=== PATIENT | male | born 1960 | race Caucasian/White ===

== ENCOUNTER 2020-05-28 07:45 | Outpatient (CLI) | payer OTHER, SELFPAY ==
--- NOTE | ~2020-05-28 | CT_ITS ---
EXAMINATION: CT abdomen pelvis w con EXAM DATE: 05/28/2020 08:28 INDICATION: Periumbilical, epigastric pain. TECHNIQUE: Spiral CT of the abdomen and pelvis was performed without contrast. Axial, coronal and s agittal images were reviewed. The dose-length product (DLP) for this examination was 190.53 mGy-cm. The exposure was tailored according to patient size (auto mA exposure control), and iterative recons truction (ASIR) was used as additional dose reduction technique. There is no prior study for compari son. FINDINGS: The liver, spleen, adrenal glands and pancreas are unremarkable. Gallbladder is unremarkab le. No biliary obstruction. Portal and splenic veins are patent. Kidneys enhance symmetrically. T here is no hydronephrosis. The prostate is unremarkable. There is a left renal cyst measuring 3 cm. There is bladder is undistended with wall trabeculation, and mild diffuse thickening without focal p olypoid urothelial lesion suspected. There is no retroperitoneal or pelvic lymphadenopathy. There is mild scattered arteriosclerotic disease. No abdominal wall hernias. The appendix is normal. There is mild to moderate sigmoid colonic diverticulosis. There is no adjace nt inflammatory change to suggest diverticulitis. The stomach and small bowel are unremarkable. Ther e is expected amount of colonic stool. No free intraperitoneal gas. The heart is normal in size. There are no pericardial or pleural effusions. The lung bases are unremarkable. There are no osteo blastic or osteolytic lesions identified. IMPRESSION: 1. No acute intra-abdominal findings. 2. Mild to moderate colonic diverticulosis. 3. Diffuse lateral wall thickening, partly under distention but chronic cystitis also possible. Reviewed, dictated and finalized at location B. IMPRESSION: 1. No acute intra-abdominal findings. 2. Mild to moderate colonic diverticulosis. 3. Diffuse lateral wall thickening, partly under distention but chronic cystit is also possible.
--- NOTE | ~2020-05-28 | XR_ITS ---
EXAMINATION: XR UGIAC w kub DATE: 05/28/2020 08:57 INDICATION: Epigastric and periumbilical abdominal pain. TECHNIQUE: The patient drank thick barium, gas-producing crystals, and thin barium. A quality assurance technician AP radiog raph of the abdomen and pelvis was obtained. A total of 488 fluoroscopic images of the esophagus, sto mach, and proximal small bowel were obtained. Fluoroscopy exposure time was 1.6 minutes. COMPARISON: None. FINDINGS: The quality assurance technician radiograph demonstrates excreted contrast in the bilateral renal collecting systems, proxim al ureters and in the bladder. There is mild caliectasis at the left kidney without patrick hydronephro sis. The esophagus is normal without mass or stricture. Esophageal motility is normal. There is no hi atal hernia. A single episode of gastroesophageal reflux was observed with a moderate amount of contr ast extending to at least the midesophagus with Valsalva. The stomach and proximal small bowel are no rmal. IMPRESSION: 1. Single episode of gastroesophageal reflux with provocative maneuvers. Otherwise unremarkable upper GI study. 2. Mild caliectasis at the left kidney without patrick hydronephrosis. Reviewed, dictated and finalized at location A. IMPRESSION: 1. Single episode of gastroesophageal reflux with provocative maneuvers. Otherw ise unremarkable upper GI study. 2. Mild caliectasis at the left kidney without patrick hydronephrosis.
[2020-05-28 08:22] LABS: Basophils Absolute Auto 0.1 K/mm3 (0.0-0.1); Basophils Percent Auto 1.1 % (0.2-1.2); Eosinophils Absolute Auto 0.1 K/mm3 (0-0.3); Eosinophils Percent Auto 1.8 % (0-4.4); Hemoglobin 16.9 g/dL (14.0-18.0); Immature Granulocyte Absolute 0.01 K/mm3 (0.00-0.031); Immature Granulocyte Percent A 0.2 % (0-0.5); Lymphocytes Absolute Auto 1.29 K/mm3 (0.9-3.2); Lymphocytes Percent Auto 21.1 % (18.3-44.2); Mean Corpuscular HGB Conc 33.8 g/dl (32-36); Mean Corpuscular Volume 91.6 fl (80-100); Mean Platelet Volume 10.3 fl (7.4-10.4); Monocytes Absolute Auto 0.5 K/mm3 (0.1-0.6); Monocytes Percent Auto 8.5 % (2.6-8.5); Neutrophils Absolute Auto 4.1 K/mm3 (1.3-6.7); Neutrophils Percent Auto 67.3 % (45.5-73.1); Platelet Count Result 265 k/mm3 (150-375); Red Blood Count 5.46 M/mm3 (4.6-6.20); Red Cell Distribution Width 12.8 % (11.5-14.5); White Blood Count 6.1 K/mm3 (4.5-10.0)
[2020-05-28 08:25] LABS: Add Urine Microscopic? YES; Appearance Urine Clear (Clear); Bilirubin Urine Negative (Negative); Blood Urine Negative (Negative); Color Urine Yellow (Yellow); Glucose Urine UA Negative (Negative); Ketones Urine Negative (Negative); Leukocyte Esterase Ur Negative LEU/UL (NEGATIVE); Mucus Urine Rare /lpf; Nitrate Urine Negative (Negative); Protein Urine 1+ mg/dL (Negative); RBC Urine 0-2 /hpf (0-2); Specific Grav Ur 1.018 (1.001-1.035); Urobilinogen Urine Negative mg/dL (<2.0); WBC Urine 0-3 /hpf (0-3)
[2020-05-28 08:36] LABS: Alanine Aminotransferase 16 U/L (4-50); Albumin Level 3.7 g/dL (3.5-5.1); Alkaline Phosphatase 57 U/L (38-126); Amylase 95 U/L (30-110); Aspartate Amino Transferase 31 U/L (17-59); Bilirubin,Total 0.7 mg/dL (0.2-1.3); Blood Urea Nitrogen 15 mg/dL (9-20); Calcium 9.1 mg/dL (8.4-10.2); Carbon Dioxide 30 mmol/L (22-30); Chloride 105 mmol/L (98-107); Cholesterol 250 mg/dL (0-200); Estimated Glomerular Filt Rate > 60; Glucose 106 mg/dL (75-110); HDL Direct 70 mg/dL; Lipase 96 U/L (23-300); Potassium 5.3 mmol/L (3.4-5.0); Sodium 137 mmol/L (137-145); Triglycerides 176 mg/dL (<150)
[2020-05-28 08:48] LABS: LDL Cholesterol Direct 127 mg/dL
[2020-05-28 09:08] LABS: Prostate Specific Antigen 1.3 ng/mL (< OR = 4.0); Thyroid Stimulating Hormone 0.806 uIU/mL (0.465-4.680)
[2020-05-28 09:09] LABS: Free T4 Free Thyroxine 0.97 ng/mL (0.78-2.19)
[2020-05-28 09:13] LABS: Hemoglobin A1C 5.3 % (<5.7)
[2020-05-28 09:43] LABS: Folic Acid 8.5 ng/mL (2.76->20)
== END 2020-05-28 07:46 | disposition home or self-care (01) ==
LOC: ANHIMG 07:49
PROVIDERS: PCP Physician Assistant; Visit Provider Physician Assistant
DX: R10.13 Epigastric pain (principal); R10.9 Unspecified abdominal pain; Z12.5 Encounter for screening for malignant neoplasm of prostate; Z13.29 Encounter for screening for other suspected endocrine disorder; Z13.220 Encounter for screening for lipoid disorders
CPT/HCPCS: 36415; 74177; 74246; 80053; 80061; 81001; 82150; 82607; 82746; 83036; 83690; 84153; 84439; 84443; 85025; G0103; Q9967

== ENCOUNTER 2020-11-06 02:20 | Outpatient (CLI) | payer OTHER, SELFPAY ==
[2020-11-06 18:46] LABS: SARS-CoV-2 RNA PCR Negative
== END 2020-11-06 02:21 | disposition home or self-care (01) ==
LOC: ANHCOVIDDT 02:20
PROVIDERS: PCP Physician Assistant; Visit Provider Internal Medicine Gastroenterology
DX: Z01.812 Encounter for preprocedural laboratory examination (principal); Z11.59 Encounter for screening for other viral diseases
CPT/HCPCS: 87635; C9803; U0003

== ENCOUNTER 2020-11-09 00:56 | Day surgery (SDC) | payer OTHER, SELFPAY ==
[2020-11-02 13:07] VITALS: BMI 19.1
[2020-11-09 12:44] VITALS: BP 142/77; PULSE 64; RESP 18; TEMP 36.1; O2SAT 100
--- NOTE | 2020-11-09 12:45 | WPDANESEPPF ---
Anes - Initial Pre Proc Eval Procedure: Operation Date: 11/09/20 14:00 Proposed Procedures p Esophagogastroduodenoscopy - Maximo Barrera DO Date/Time: 11/09/20 12:45 Surgeon: Maximo Barrera DO Pre Op Diagnosis: GERD Patient Data Age: 59 Gender: M Height: 5 ft 8 in Weight: 55.1 kg Last Vital Signs Temp 36.1 C L 11/09/20 12:44 Pulse 64 11/09/20 12:44 Resp 18 11/09/20 12:44 BP 142/77 H 11/09/20 12:44 Pulse Ox 100 11/09/20 12:44 Allergies Allergy/AdvReac Type Severity Reaction Status Date / Time No Known Allergies Allergy Unknown Verified 11/09/20 12:43 Home Medications Medication Instructions Recorded Confirmed Type zolpidem 5 mg PO HS 11/02/20 11/09/20 History Patient hx anesthesia problems: none Family hx anesthesia problems: none [facility] Past Medical History Medical History (Updated 11/09/20 @ 12:46 by Ramsey Fletcher MD) Depression GERD (gastroesophageal reflux disease) Surgical History Surgical History (Updated 11/09/20 @ 12:46 by Ramsey Fletcher MD) H/O colonoscopy Family History Family History (Updated 04/29/19 @ 11:01 by DOCTOR UNKNOWN) Mother Family history of glaucoma Family history of coronary artery disease Acute myocardial infarction Father Family history of heart disease in male family member before age 55 Family history of coronary artery disease Other Hypertension Social History Social History Smoking status: Never smoker Alcohol intake: current Drinks per week: 14 Alcohol use details: BEERS Substance use: never Substance use type: does not use Living arrangements: with family Spiritual care concerns: No Anes - Eval Final PreProcedure Day of Procedure 11/09/20 12:45 Patient weight: thin Heart: regular rate and rhythm Lungs: clear to auscultation Airway: Mallampati scale class 1 Neurological: alert and oriented Last oral intake: >/= 8 hours ASA classification: II Emergent: no Anesthetic plan: proceed Anesthesia type and monitoring: general GIVS and standard monitoring Informed Consent: The patient's anesthetic plan and its attendant risks and benefits were discussed with the patient/family/POA. Questions were solicited and answers provided to the satisfaction of the patient/family/POA.
[2020-11-09] MEDS: LACTATED RINGERS 1,000 ML 150 ML IV CONT (12:54)
--- NOTE | 2020-11-09 13:25 | PM.IMHP ---
H&P: HPI History of Present Illness Date/Time: 11/09/20 13:25 Chief complaint: GERD Narrative: Reason for visit is EGD. This very pleasant gentleman seen in consultation at the request of the primary physician. Impression: Here we have a gentleman with complaints of a lump in his throat upper abdominal pain. Will evaluate for underlying peptic ulcer disease. The lump in throat may be secondary to globus reaction. HLD. Anxiety. 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 Recommendation: EGD. History: Very pleasant gentleman is here complaining of 6 months of a sense of choking / lump in the throat. This usually occurs after eating. Denies any nausea, vomiting, dysphagia or odynophagia. He also has been having subxiphoid/epigastric abdominal pain. The pain is unaffected by eating or defecation. He does admit to be taking NSAIDs on occasion. Patient is here for endoscopic evaluation to assess for lying peptic ulcer disease. Previous CT imaging was unrewarding with respect to the abdominal pain. Physical examination: General: very pleasant patient in no acute distress. HEENT: Head was normocephalic sclerae is clear mouth without masses neck was supple. Heart: Rate rhythm regular without S3 or S4. Lungs: CTA. Abdomen: Soft with no guarding or rigidity. Bowel sounds were active. Neurologic: Cranial nerves 2 through 12 intact. No focal defects. No clonus. Musculoskeletal system: Revealed no joint tenderness or swelling no muscle atrophy. Extremities: Reveal no significant edema. Skin: Warm and dry with normal turgor. Mental status: intact. Patient is alert and oriented. Review of Systems Review of Systems: All systems reviewed & are unremarkable except as noted in HPI and below [facility] Past Medical History Medical History (Updated 11/09/20 @ 12:46 by Ramsey Fletcher MD) Depression GERD (gastroesophageal reflux disease) Surgical History Surgical History (Updated 11/09/20 @ 12:46 by Ramsey Fletcher MD) H/O colonoscopy Family History Family History (Updated 04/29/19 @ 11:01 by DOCTOR UNKNOWN) Mother Family history of glaucoma Family history of coronary artery disease Acute myocardial infarction Father Family history of heart disease in male family member before age 55 Family history of coronary artery disease Other Hypertension Social History Social History Smoking status: Never smoker Alcohol intake: current Drinks per week: 14 Alcohol use details: BEERS Substance use: never Substance use type: does not use Living arrangements: with family Spiritual care concerns: No Meds Home Medications and Allergies Home Medications Medication Instructions Recorded Confirmed Type zolpidem 5 mg PO HS 11/02/20 11/09/20 History Allergies Allergy/AdvReac Type Severity Reaction Status Date / Time No Known Allergies Allergy Unknown Verified 11/09/20 12:43 Vital Signs Vital Signs - 24 hr 11/09/20 12:44 Temperature 36.1 C L Pulse Rate 64 Respiratory Rate 18 Blood Pressure 142/77 H Pulse Oximetry 100
[2020-11-09] MEDS: BENZOCAINE (*SP) 60 ML SPRAY CAN (HURRICAINE) 1 SPRAY MUCOUS MEM (13:36)
[2020-11-09 13:52] VITALS: BP 115/67; PULSE 61; RESP 17; O2SAT 99
[2020-11-09 14:02] VITALS: BP 108/73; PULSE 52; RESP 18; O2SAT 99
[2020-11-09 14:12] VITALS: BP 133/69; PULSE 52; RESP 15; O2SAT 100
== END 2020-11-09 14:23 | disposition home or self-care (01) ==
PROVIDERS: PCP Physician Assistant; Visit Provider Internal Medicine Gastroenterology
PROC: 0DJ08ZZ Inspection of Upper Intestinal Tract, Via Natural or Artificial Opening Endoscopic (ICD-10-PCS; CPT 43235; principal; 2020-11-09 14:00)
DX: K21.9 Gastro-esophageal reflux disease without esophagitis (principal); K25.3 Acute gastric ulcer without hemorrhage or perforation; R13.10 Dysphagia, unspecified; F32.9 Major depressive disorder, single episode, unspecified
CPT/HCPCS: 43450; 43239; 87081; 88305; 88342; J2704; J7120

== ENCOUNTER 2023-03-20 07:22 | Outpatient (CLI) | payer OTHER, SELFPAY ==
[2023-03-20 07:57] LABS: Basophils Absolute Auto 0.1 K/mm3 (0.0-0.1); Basophils Percent Auto 1.3 % (0.2-1.2); Eosinophils Absolute Auto 0.3 K/mm3 (0-0.3); Hematocrit 43.5 % (42.0-52.0); Hemoglobin 14.6 g/dL (14.0-18.0); Immature Granulocyte Absolute 0.01 K/mm3 (0.00-0.031); Immature Granulocyte Percent A 0.2 % (0-0.5); Lymphocytes Absolute Auto 1.19 K/mm3 (0.9-3.2); Lymphocytes Percent Auto 26.5 % (18.3-44.2); Mean Corpuscular HGB Conc 33.6 g/dl (32-36); Mean Corpuscular Hemoglobin 32.2 pg (26-34); Mean Platelet Volume 10.5 fl (7.4-10.4); Monocytes Absolute Auto 0.4 K/mm3 (0.1-0.6); Monocytes Percent Auto 9.8 % (2.6-8.5); Neutrophils Absolute Auto 2.5 K/mm3 (1.3-6.7); Neutrophils Percent Auto 56.2 % (45.5-73.1); Platelet Count Result 229 k/mm3 (150-375); Red Blood Count 4.53 M/mm3 (4.6-6.20); Red Cell Distribution Width 13.8 % (11.5-14.5); White Blood Count 4.5 K/mm3 (4.5-10.0)
[2023-03-20 08:00] LABS: Appearance Urine Clear (Clear); Bilirubin Urine Negative (Negative); Blood Urine Negative (Negative); Color Urine Yellow (Yellow); Glucose Urine UA Negative (Negative); Ketones Urine Negative (Negative); Leukocyte Esterase Ur Negative LEU/UL (NEGATIVE); Nitrate Urine Negative (Negative); Protein Urine Negative (Negative); Specific Grav Ur 1.018 (1.001-1.035); pH Urine 6.5 (5.0-9.0)
[2023-03-20 08:14] LABS: Add Urine Microscopic? NO
[2023-03-20 08:16] LABS: Alanine Aminotransferase 22 U/L (6-50); Albumin Level 4.2 g/dL (3.5-5.1); Alkaline Phosphatase 56 U/L (38-126); Anion Gap 1 mmol/L (8-16); Aspartate Amino Transferase 45 U/L (17-59); Bilirubin,Total 1.1 mg/dL (0.2-1.3); Blood Urea Nitrogen 17 mg/dL (9-20); Calcium 9.1 mg/dL (8.4-10.2); Carbon Dioxide 31 mmol/L (22-30); Chloride 104 mmol/L (98-107); Cholesterol 234 mg/dL (0-200); Estimated Glomerular Filt Rate > 60; Glucose 104 mg/dL (65-110); HDL Direct 100 mg/dL; Potassium 5.6 mmol/L (3.4-5.0); Sodium 136 mmol/L (137-145); Triglycerides 96 mg/dL (<150)
[2023-03-20 08:25] LABS: Hemoglobin A1C 5.1 % (<5.7)
[2023-03-20 08:27] LABS: LDL Cholesterol Direct 92 mg/dL
[2023-03-20 08:39] LABS: Free T4 Free Thyroxine 1.04 ng/mL (0.78-2.19)
[2023-03-20 08:46] LABS: Prostate Specific Antigen 1.4 ng/mL (< OR = 4.0)
== END 2023-03-20 07:23 | disposition home or self-care (01) ==
LOC: ANHLAB 07:24
PROVIDERS: PCP Physician Assistant; Visit Provider Physician Assistant
DX: Z13.1 Encounter for screening for diabetes mellitus (principal); E78.5 Hyperlipidemia, unspecified; Z12.5 Encounter for screening for malignant neoplasm of prostate; Z79.899 Other long term (current) drug therapy
CPT/HCPCS: 36415; 80053; 80061; 81003; 83036; 84153; 84439; 84443; 85025; G0103

== ENCOUNTER 2023-07-05 22:57 | Emergency (ER) | payer OTHER, SELFPAY ==
[2023-07-05 23:02] VITALS: BP 143/70; PULSE 72; RESP 18; TEMP 36.4; O2SAT 100
--- NOTE | 2023-07-05 23:26 | ED.GENADULT ---
HPI - General Adult General Chief complaint: Allergic Reaction Stated complaint: hives Time Seen by Provider: 07/05/23 23:18 Source: patient Mode of arrival: ambulatory Limitations: no limitations History of Present Illness HPI narrative: This is a 62-year-old male who presents to the ED with chief complaint of possible allergic reaction. He reports hives throughout his body and itching onset around 2145 this evening. He reports he ate a hamburger, fries and pickles tonight for dinner and seem to have the reaction start a couple hours after that. Denies any new soaps, detergents, lotions. Denies any new medications. Denies any known exposure to outdoor allergens. Denies shortness of breath, tongue swelling, lip swelling. He states this has happened 1 other time after he ate some pickled peppers several years ago. Otherwise no known allergies. Related Data Home Medications Medication Instructions Recorded Confirmed zolpidem 10 mg tablet 5 mg PO HS 11/02/20 11/09/20 Allergies Allergy/AdvReac Type Severity Reaction Status Date / Time No Known Allergies Allergy Unknown Verified 11/09/20 12:43 Review of Systems Review of Systems: All systems as dictated in [facility] Past Medical History Medical History (Updated 07/06/23 @ 00:19 by Adin Arora PA-C) Depression GERD (gastroesophageal reflux disease) Surgical History Surgical History (Updated 11/09/20 @ 12:46 by Ramsey Fletcher MD) H/O colonoscopy Family History Family History (Updated 04/29/19 @ 11:01 by DOCTOR UNKNOWN) Mother Family history of glaucoma Family history of coronary artery disease Acute myocardial infarction Father Family history of heart disease in male family member before age 55 Family history of coronary artery disease Other Hypertension Social History Social History Smoking status: Never smoker Alcohol intake: current Drinks per week: 14 Alcohol use details: BEERS Substance use: never Substance use type: does not use Living arrangements: with family Spiritual care concerns: No Exam Narrative: GENERAL: Well-appearing, well-nourished, and in no acute distress. HEAD: Normocephalic, atraumatic. EYES: PERRLA and EOMI. ENT: Nares clear, no rhinorrhea or epistaxis. Mucous membranes moist. Oropharynx without tonsillar hypertrophy exudate or other lesions. NECK: Supple. No adenopathy or masses. CHEST: No respiratory distress. Clear to auscultation. No wheezes rales or rhonchi HEART: Regular rate and rhythm. No murmur heard. Normal peripheral pulses. ABDOMEN: Soft, nontender, nondistended, normal active bowel sounds. MSK: Normal range of motion. No edema. SKIN: Diffuse urticarial rash throughout the body, worse on the buttocks and posterior thighs. NEURO: Alert and oriented x3. No focal deficits. PSYCH: Normal mood and affect. Course Vital Signs Vital signs: Vital Signs Temperature 97.6 F 07/05/23 23:02 Pulse Rate 72 07/05/23 23:02 Respiratory Rate 18 07/05/23 23:02 Blood Pressure 143/70 H 07/05/23 23:02 Pulse Oximetry 100 07/05/23 23:02 Oxygen Delivery Room Air 07/05/23 23:02 Temperature 97.6 F 07/05/23 23:02 Pulse Rate 72 07/05/23 23:02 Respiratory Rate 18 07/05/23 23:02 Blood Pressure 143/70 H 07/05/23 23:02 Pulse Oximetry 100 07/05/23 23:02 Oxygen Delivery Room Air 07/05/23 23:02 Medical Decision Making MDM Narrative Medical decision making narrative: This is a 62-year-old male who presents to the ED with chief complaint of possible allergic reaction after eating pickles this evening. Vitals are normal. Exam is benign. Airway intact. He does have an urticarial rash diffusely. No evidence of angioedema or anaphylaxis. He was monitored here in the department for 1.5 hours. He given a dose of prednisone here. Symptomatically improved on reevaluation. Pt will be discharged in stable condition. Prescription for Medrol D
[2023-07-05] MEDS: predniSONE 20 MG TABLET 40 MG PO (23:56)
[2023-07-06 00:01] VITALS: BP 133/85; PULSE 58; RESP 15; O2SAT 99
== END 2023-07-06 00:51 | disposition home or self-care (01) ==
PROVIDERS: Emergency Provider Physician Assistant; PCP Physician Assistant
DX: L50.9 Urticaria, unspecified (principal); K21.9 Gastro-esophageal reflux disease without esophagitis
CPT/HCPCS: 99283; J7512

== ENCOUNTER 2023-08-14 08:02 | Outpatient (CLI) | payer OTHER, SELFPAY ==
[2023-08-14 09:10] LABS: Anion Gap 3 mmol/L (8-16); Blood Urea Nitrogen 17 mg/dL (9-20); Carbon Dioxide 28 mmol/L (22-30); Chloride 106 mmol/L (98-107); Estimated Glomerular Filt Rate > 60; Glucose 105 mg/dL (65-110); Sodium 137 mmol/L (137-145)
== END 2023-08-14 08:03 | disposition home or self-care (01) ==
LOC: ANHLAB 08:06
PROVIDERS: PCP Physician Assistant; Visit Provider Physician Assistant
DX: E87.5 Hyperkalemia (principal)
CPT/HCPCS: 36415; 80048